=== PATIENT | male | born 1975 | race Native Hawaiian/Other Pacific Islander ===

== ENCOUNTER 2020-09-18 06:31 | Emergency (ER) | payer SELFPAY ==
[2020-09-18 08:59] LABS: Basophils # (Auto) 0.1 K/mm3 (0.0-0.1); Basophils % (Auto) 0.6 % (0.0-1.8); Eosinophils # (Auto) 0.1 K/mm3 (0.0-0.4); Eosinophils % (Auto) 0.9 % (0.0-4.3); Hemoglobin 13.8 gm/dl (11.8-15.2); Lymphocytes # (Auto) 2.8 K/mm3 (1.2-5.4); Lymphocytes % (Auto) 26.6 % (13.4-35.0); Mean Corpuscular HGB Conc 34 % (32-34); Mean Corpuscular Volume 89 fl (84-94); Monocytes # (Auto) 1.1 K/mm3 (0.0-0.8); Monocytes % (Auto) 11.1 % (0.0-7.3); Platelet Count 422 K/mm3 (140-440); Red Blood Count 4.59 M/mm3 (3.65-5.03); Red Cell Distribution Width 13.2 % (13.2-15.2)
--- NOTE | 2020-09-18 09:24 | XRay Report ---
CHEST 2 VIEWS INDICATION: chest pain. COMPARISON: None FINDINGS: Support devices: None. Heart: Within normal limits. Lungs/pleura: Small bilateral pleural effusions are identified. No acute air space or interstitial di sease. No pneumothorax. Additional findings: None. IMPRESSION: Small bilateral pleural effusions. Signer Name: Anibal Webster Jr, MD Signed: 09/18/2020 9:19 AM Workstation Name: [id number]
[2020-09-18 09:26] LABS: Alanine Aminotransferase 15 units/L (7-56); Albumin 3.5 g/dL (3.9-5); BUN/Creatinine Ratio 14; Blood Urea Nitrogen 14 mg/dL (9-20); Hemolysis Index 3
--- NOTE | 2020-09-18 12:04 | Emergency Department Report ---
ED Chest Pain HPI - General Chief Complaint: Chest Pain Stated Complaint: CHEST PAIN Time Seen by Provider: 09/18/20 11:49 Source: patient Mode of arrival: Ambulatory Limitations: No Limitations - History of Present Illness Initial Comments: 45-year-old male patient with history of HIV (compliant with antiretrovirals per patient) presents with complaints of sudden onset of bilateral chest pain starting this morning. He describes the pain as squeezing and stabbing and states it worsens with inhalation. Rates pain as a 9/10 in severity. He denies any cough, hemoptysis, abdominal pain, nausea/vomiting, leg pain/swelling, recent long travel/surgeries, history of DVT/PE/cancer, or personal history of heart disease. He also denies any family history of heart disease. He states mild shortness of breath mainly with inhalation - Related Data Allergies Allergy/AdvReac Type Severity Reaction Status Date / Time No Known Allergies Allergy Unverified 09/18/20 07:25 Heart Score - HEART Score History: Slightly suspicious EKG: Normal Age: < 45 Risk factors: 1-2 risk factors Troponin: < normal limit HEART Score: 1 - Critical Actions Critical Actions: 0-3 pts:0.9-1.7%risk of adverse cardiac event.Candidate for discharge ED Review of Systems ROS: Stated complaint: CHEST PAIN Other details as noted in HPI Constitutional: denies: chills, fever ENT: denies: throat pain Respiratory: see HPI. denies: cough Cardiovascular: chest pain. denies: edema, syncope Gastrointestinal: denies: abdominal pain, nausea, vomiting Skin: denies: rash, lesions, change in color Neurological: denies: headache ED Past Medical Hx - Past Medical History Previous Medical History?: No - Surgical History Past Surgical History?: No - Social History Smoking Status: Never Smoker Substance Use Type: None ED Physical Exam - General Limitations: No Limitations General appearance: alert, in no apparent distress - Head Head exam: Present: atraumatic, normocephalic - Eye Eye exam: Present: normal appearance. Absent: scleral icterus - Respiratory Respiratory exam: Present: normal lung sounds bilaterally. Absent: respiratory distress, chest wall tenderness - Cardiovascular Cardiovascular Exam: Present: regular rate, normal rhythm - GI/Abdominal GI/Abdominal exam: Present: soft. Absent: distended, tenderness, guarding, rebound, rigid - Extremities Exam Extremities exam: Present: full ROM. Absent: calf tenderness - Neurological Exam Neurological exam: Present: alert, oriented X3, normal gait - Psychiatric Psychiatric exam: Present: normal affect, normal mood - Skin Skin exam: Present: warm, dry, intact, normal color. Absent: rash ED Course Vital Signs 09/18/20 09/18/20 07:25 15:25 Temperature 98.1 F 99.1 F Pulse Rate 100 H 98 H Respiratory 18 16 Rate Blood Pressure 117/77 Blood Pressure 120/73 [Left] O2 Sat by Pulse 99 100 Oximetry ED Medical Decision Making - Lab Data Result diagrams: 09/18/20 08:50 09/18/20 08:50 Lab Results 09/18/20 09/18/20 09/18/20 Range/Units 08:50 08:50 08:50 WBC 10.3 (4.5-11.0) K/mm3 RBC 4.59 (3.65-5.03) M/mm3 Hgb 13.8 (11.8-15.2) gm/dl Hct 41.0 (35.5-45.6) % MCV 89 (84-94) fl MCH 30 (28-32) pg MCHC 34 (32-34) % RDW 13.2 (13.2-15.2) % Plt Count 422 (140-440) K/mm3 Lymph % (Auto) 26.6 (13.4-35.0) % Lassen % (Auto) 11.1 H (0.0-7.3) % Eos % (Auto) 0.9 (0.0-4.3) % Baso % (Auto) 0.6 (0.0-1.8) % Lymph # (Auto) 2.8 (1.2-5.4) K/mm3 Lassen # (Auto) 1.1 H (0.0-0.8) K/mm3 Eos # (Auto) 0.1 (0.0-0.4) K/mm3 Baso # (Auto) 0.1 (0.0-0.1) K/mm3 Seg Neutrophils % 60.8 (40.0-70.0) % Seg Neutrophils # 6.3 (1.8-7.7) K/mm3 Sodium 138 (137-145) mmol/L Potassium 4.3 (3.6-5.0) mmol/L Chloride 102.5 (98-107) mmol/L Carbon Dioxide 27 (22-30) mmol/L Anion Gap 13 mmol/L BUN 14 (9-20) mg/dL Creatinine 1.0 (0.8-1.3) mg/dL Estimated GFR > 60 ml/min BUN/Creatinine Ratio 14 % Glucose 94 (75-100) mg/dL Calcium 9.0 (8.4-10.2) mg/dL Total Bilirubin 0.70 (0.1-1.2) mg/dL AST 13 (5-40) units/L ALT 15 (7-56) units/L Alkaline Phosphatase 66 (35-129) units/L Troponin T < 0.010 (0.00-0.029) ng/mL C-Reactive Protein 9.40 H (0.00-1.30) mg/dL NT-Pro-B Natriuret Pep 47.46 (0-450) pg/mL Total Protein 8.3 H (6.3-8.2) g/dL Albumin 3.5 L (3.9-5) g/dL Albumin/Globulin Ratio 0.7 % 12/30/20 Range/Units 11:31 WBC (4.5-11.0) K/mm3 RBC (3.65-5.03) M/mm3 Hgb (11.8-15.2) gm/dl Hct (35.5-45.6) % MCV (84-94) fl MCH (28-32) pg MCHC (32-34) % RDW (13.2-15.2) % Plt Count (140-440) K/mm3 Lymph % (Auto) (13.4-35.0) % Lassen % (Auto) (0.0-7.3) % Eos % (Auto) (0.0-4.3) % Baso % (Auto) (0.0-1.8) % Lymph # (Auto) (1.2-5.4) K/mm3 Lassen # (Auto) (0.0-0.8) K/mm3 Eos # (Auto) (0.0-0.4) K/mm3 Baso # (Auto) (0.0-0.1) K/mm3 Seg Neutrophils % (40.0-70.0) % Seg Neutrophils # (1.8-7.7) K/mm3 Sodium (137-145) mmol/L Potassium (3.6-5.0) mmol/L Chloride (98-107) mmol/L Carbon Dioxide (22-30) mmol/L Anion Gap mmol/L BUN (9-20) mg/dL Creatinine (0.8-1.3) mg/dL Estimated GFR ml/min BUN/Creatinine Ratio % Glucose (75-100) mg/dL Calcium (8.4-10.2) mg/dL Total Bilirubin (0.1-1.2) mg/dL AST (5-40) units/L ALT (7-56) units/L Alkaline Phosphatase (35-129) units/L Troponin T < 0.010 (0.00-0.029) ng/mL C-Reactive Protein (0.00-1.30) mg/dL NT-Pro-B Natriuret Pep (0-450) pg/mL Total Protein (6.3-8.2) g/dL Albumin (3.9-5) g/dL Albumin/Globulin Ratio % - EKG Data EKG shows normal: sinus rhythm Rate: normal - EKG Data When compared to previous EKG there are: previous EKG unavailable Interpretation: normal EKG - Radiology Data Radiology results: report reviewed CHEST 2 VIEWS INDICATION: chest pain. COMPARISON: None FINDINGS: Support devices: None. Heart: Within normal limits. Lungs/pleura: Small bilateral pleural effusions are identified. No acute air space or interstitial disease. No pneumothorax. Additional findings: None. IMPRESSION: Small bilateral pleural effusions. - Medical Decision Making 45-year-old male patient with history of HIV (compliant with antiretrovirals per patient) presents with complaints of sudden onset of bilateral chest pain starting this morning. He describes the pain as squeezing and stabbing and states it worsens with inhalation. Rates pain as a 9/10 in severity. He denies any cough, hemoptysis, abdominal pain, nausea/vomiting, leg pain/swelling, recent long travel/surgeries, history of DVT/PE/cancer, or personal history of heart disease. He also denies any family history of heart disease. He states mild shortness of breath mainly with inhalation CBC and CMP are normal. Troponin is normal x2. Chest x-ray shows small bilateral pleural effusions. Heart rate noted to be 100, PERC score = 1. CTA chest performed and shows pericarditis. EKG is normal. Discussed with Dr. Gee, cardiology-recommends admission and states he will perform echocardiogram tomorrow. Patient admitted to Dr. Corrales, [facility]. Critical care attestation.: If time is entered above; I have spent that time in minutes in the direct care of this critically ill patient, excluding procedure time. ED Disposition Clinical Impression: Pericarditis Qualifiers: Pericarditis type: other type Chronicity: acute Qualified Code(s): I30.8 - Other forms of acute pericarditis Chest pain Qualifiers: Chest pain type: pleurodynia Qualified Code(s): R07.81 - Pleurodynia Disposition: DC-09 OP ADMIT IP TO THIS HOSP Is pt being admited?: Yes Condition: Stable Instructions: Chest Pain (ED) Referrals: PRIMARY CARE, [Primary Care Provider] - 3-5 Days
[2020-09-18] MEDS ORDERED: KETOROLAC 30 MG/1 ML INJ IV ONE (12:48)
--- NOTE | 2020-09-18 14:04 | Cat Scan Report ---
CTA CHEST WITH IV CONTRAST INDICATION / CLINICAL INFORMATION: chest pain, pleural effusions. TECHNIQUE: Axial CT images were obtained through the chest after injection of 100 cc Omnipaque 300 milligrams pe rcent IV contrast. 3 plane MIP and/or 3D reconstructions were produced. All CT scans at this location are performed using CT dose reduction for ALARA by means of automated exposure control. COMPARISON: None available. FINDINGS: PULMONARY ARTERIES: No pulmonary emboli. THORACIC AORTA: No significant abnormality. HEART: No significant abnormality. However, attention is directed to the pericardial effusion with re ticulation of fat surrounding the superior portion of the pericardial sac CORONARY ARTERIES: No significant calcification. PLEURA: Small bilateral pleural effusions. No pneumothorax. LYMPH NODES: No significant adenopathy. LUNGS: Minimum patchy parenchymal changes both with lobes ADDITIONAL FINDINGS: None. UPPER ABDOMEN: No acute findings. SKELETAL STRUCTURES: No significant osseous abnormality. IMPRESSION: 1. No CT evidence for pulmonary embolism. 2. Unusual appearance of fluid and inflammatory changes pericardium worrisome for inflammatory-infect ious pericarditis 3. Patchy parenchymal changes both lower lobes with small bilateral pleural effusions 4. No convincing evidence of acute aortic syndrome. Signer Name: Pepe Sweeney MD Signed: 09/18/2020 1:59 PM Workstation Name: [id number]
[2020-09-18] MEDS ORDERED: KETOROLAC 30 MG/1 ML INJ ONE (15:17)
[2020-09-18 15:25] VITALS: BP 120/73
[2020-09-18 17:14] LABS: C-Reactive Protein 10.5 mg/dL (0.00-1.30)
== END 2020-09-18 17:42 | disposition home or self-care (01) ==
LOC: EDBD 06:31 → ED 06:31
DX: I31.9 Disease of pericardium, unspecified (principal); R07.9 Chest pain, unspecified; Z79.899 Other long term (current) drug therapy
CPT/HCPCS: 36415; 71046; 71275; 80053; 82728; 82947; 83615; 83880; 84145; 84484; 85025; 85379; 85652; 86140; 93005; 96374; 99284; J1885; Q9967